=== PATIENT | male | born 1985 | race American Indian/Alaskan Native ===

== ENCOUNTER 2022-01-12 16:45 | Observation (INO) | payer BC, OTHER ==
[2022-01-12] MEDS ORDERED: SODIUM CHLORIDE 0.9% 1000 ML 1,000 ML IV ONE (17:03)
--- NOTE | 2022-01-12 17:28 | XRay Report ---
CHEST 1 VIEW 01/12/2022 5:05 PM INDICATION / CLINICAL INFORMATION: numbness. COMPARISON: None available. FINDINGS: SUPPORT DEVICES: None. HEART / MEDIASTINUM: No significant abnormality. LUNGS / PLEURA: No significant pulmonary or pleural abnormality. No pneumothorax. ADDITIONAL FINDINGS: No significant additional findings. IMPRESSION: 1. No acute findings. Signer Name: Norberto Luke DO Signed: 01/12/2022 5:24 PM Workstation Name: [id number]
[2022-01-12 17:46] LABS: Basophils % (Auto) 0.7 % (0.0-1.8); Eosinophils # (Auto) 0.1 K/mm3 (0.0-0.4); Eosinophils % (Auto) 0.9 % (0.0-4.3); Hematocrit 46.5 % (35.5-45.6); Hemoglobin 15.2 gm/dl (11.8-15.2); Lymphocytes # (Auto) 0.9 K/mm3 (1.2-5.4); Mean Corpuscular HGB Conc 33 % (32-34); Mean Corpuscular Volume 90 fl (84-94); Monocytes # (Auto) 0.3 K/mm3 (0.0-0.8); Monocytes % (Auto) 3.9 % (0.0-7.3); Platelet Count 213 K/mm3 (140-440); Red Blood Count 5.17 M/mm3 (3.65-5.03); Red Cell Distribution Width 13.3 % (13.2-15.2)
[2022-01-12 17:48] LABS: INR 0.81 (0.87-1.13)
[2022-01-12 17:49] LABS: Partial Thromboplastin Time 33.8 Sec. (24.2-36.6); Thrombin Time 17.4 Sec. (15.1-19.6)
--- NOTE | 2022-01-12 17:57 | Cat Scan Report ---
NONENHANCED CT SCAN OF THE HEAD: INDICATION / CLINICAL INFORMATION: 36 years Male; Stroke symptoms. TECHNIQUE: Routine CT head without contrast. All CT scans at this location are performed using CT dos e reduction for ALARA by means of automated exposure control. COMPARISON: None. FINDINGS: BRAIN / INTRACRANIAL CONTENTS: No intracerebral hemorrhage or stroke mimics No acute hemorrhage, mass effect, midline shift, hydrocephalus, or acute, large territorial infarct. No chronic infarct or focal atrophy. Normal brain volume and ventricular/sulcal size for age. No sign ificant white matter abnormality. CRANIOCERVICAL JUNCTION: No significant abnormality. ORBITS: No significant abnormality of visualized orbits. SINUSES / MASTOIDS: No significant abnormality of the visualized paranasal sinuses or mastoid air keesha ls. ADDITIONAL FINDINGS: None. IMPRESSION: No intracerebral hemorrhage or stroke mimics No acute focal parenchymal lesion Signer Name: Iwona Adams MD Signed: 01/12/2022 5:52 PM Workstation Name: [id number]
[2022-01-12] MEDS ORDERED: METOPROLOL TARTRATE 5 MG/5 ML INJ IV ONE (18:26)
[2022-01-12 18:31] LABS: Creatine Kinase MB 1.5 ng/mL (0.0-4.0)
[2022-01-12 18:32] LABS: Alanine Aminotransferase 11 units/L (7-56); Albumin 4.7 g/dL (3.9-5); BUN/Creatinine Ratio 11; Blood Urea Nitrogen 16 mg/dL (9-20); Calcium 9.8 mg/dL (8.4-10.2); Hemolysis Index 9
--- NOTE | 2022-01-12 18:53 | Emergency Department Report ---
ED General Adult HPI - General Chief complaint: Neuro Symptoms/Deficit Stated complaint: TINGLING ON LT SIDE OF FACE/LT ARM WEAKNESS Time Seen by Provider: 01/12/22 17:03 Source: patient Mode of arrival: Ambulatory Limitations: No Limitations - History of Present Illness Initial comments: states that he's had TIA's in the past and feels that he maybe having a TIA. Tingling and numbness to left side. pt had HTN but doesn;t take meds, he hasn;t seen a doctor for 2 years, no chest pain no sob, but he has some numbness on his face and upper extremity left side 2 hours prior to arrival, no weakness, or slurred speech -: Gradual, hour(s) (2) Location: face, upper extremity Worsens with: none Associated Symptoms: denies: chest pain, cough, diaphoresis, headaches, loss of appetite Treatments Prior to Arrival: none - Related Data Home Medications Medication Instructions Recorded Confirmed Last Taken No Known Home Medications [No 01/12/22 01/12/22 Unknown Reported Home Medications] Allergies Allergy/AdvReac Type Severity Reaction Status Date / Time No Known Allergies Allergy Verified 01/12/22 18:38 ED Review of Systems ROS: Stated complaint: TINGLING ON LT SIDE OF FACE/LT ARM WEAKNESS Other details as noted in HPI Constitutional: denies: chills, fever Eyes: denies: eye pain, eye discharge, vision change ENT: denies: ear pain, throat pain Respiratory: denies: cough, shortness of breath, wheezing Cardiovascular: denies: chest pain, palpitations Endocrine: no symptoms reported Gastrointestinal: denies: abdominal pain, nausea, diarrhea Genitourinary: denies: urgency, dysuria Musculoskeletal: denies: back pain, joint swelling, arthralgia Skin: denies: rash, lesions Neurological: denies: headache, weakness, paresthesias Psychiatric: denies: anxiety, depression Hematological/Lymphatic: denies: easy bleeding, easy bruising ED Past Medical Hx - Past Medical History Hx Hypertension: Yes Hx Asthma: Yes Additional medical history: TIA - Social History Smoking Status: Former Smoker - Medications Home Medications: Home Medications Medication Instructions Recorded Confirmed Last Taken Type No Known Home Medications [No 01/12/22 01/12/22 Unknown History Reported Home Medications] ED Physical Exam - General Limitations: No Limitations General appearance: alert, in no apparent distress - Head Head exam: Present: atraumatic, normocephalic - Eye Eye exam: Present: normal appearance - ENT ENT exam: Present: mucous membranes moist - Neck Neck exam: Present: normal inspection - Respiratory Respiratory exam: Present: normal lung sounds bilaterally. Absent: respiratory distress - Cardiovascular Cardiovascular Exam: Present: regular rate, normal rhythm. Absent: systolic murmur, diastolic murmur, rubs, gallop - GI/Abdominal GI/Abdominal exam: Present: soft, normal bowel sounds - Rectal Rectal exam: Present: deferred - Extremities Exam Extremities exam: Present: normal inspection - Back Exam Back exam: Present: normal inspection - Neurological Exam Neurological exam: Present: alert, oriented X3 - Psychiatric Psychiatric exam: Present: normal affect, normal mood - Skin Skin exam: Present: warm, dry, intact, normal color. Absent: rash ED Course Vital Signs 01/12/22 01/12/22 01/12/22 16:51 17:03 17:15 Temperature 98.7 F Pulse Rate 111 H 107 H Respiratory 18 Rate Blood Pressure 234/140 Blood Pressure 241/164 [Left] O2 Sat by Pulse 99 98 96 Oximetry 01/12/22 01/12/22 17:45 18:15 Temperature Pulse Rate 100 H 102 H Respiratory Rate Blood Pressure Blood Pressure 236/142 251/151 [Left] O2 Sat by Pulse 100 100 Oximetry - Reevaluation(s) Reevaluation #1: 01/12/22 18:51 work up negative , head cT negative lopressor didn;t cause much effect , will start on nicardipine drip for hypertensive emrgency ED Medical Decision Making - Lab Data Result diagrams: 01/12/22 17:14 01/12/22 17:14 Critical care attestation.: If time is entered above; I have spent that time in minutes in the direct care of this critically ill patient, excluding procedure time. ED Disposition Clinical Impression: Hypertensive emergency, Numbness Disposition: ADMITTED INPATIENT Is pt being admited?: Yes Does the pt Need Aspirin: No Condition: Stable Instructions: Hypertension (ED), Preventing Hypertension
[2022-01-12] MEDS ORDERED: niCARdipine DRIP 40 MG/200 ML BAG ONE (18:56)
[2022-01-12 19:06] LABS: Amphetamine Screen,Urine PRESUMPTIVE NEGATIVE; Benzodiazepines Screen,Urine PRESUMPTIVE NEGATIVE; Cannabinoid Screen,Urine PRESUMPTIVE NEGATIVE; Cocaine Screen,Urine PRESUMPTIVE NEGATIVE; Methadone Screen,Urine PRESUMPTIVE NEGATIVE; Opiate Screen,Urine PRESUMPTIVE NEGATIVE
[2022-01-12 19:31] LABS: Bilirubin,Urine NEG (Negative); Blood,Urine NEG (Negative); Color,Urine Straw (Yellow); Urobilinogen,Urine < 2.0 mg/dL (<2.0)
[2022-01-12] MEDS: niCARdipine 50 MG in SODIUM CHLORIDE 0.9% 250ML 230 ML IV SCH (19:44)
--- NOTE | 2022-01-12 19:46 | History and Physical Report ---
History of Present Illness Date of examination: 01/12/22 Date of admission: 01/12/2022 Chief complaint: January 12, 2022 History of present illness: 36-year-old -[place] male with morbid obesity and history of hypertension comes to the emergency room complaining of tingling to the left side of the face and left upper extremity. Patient had similar episodes in the past. Patient does not take his blood pressure medications for the last couple of years. Very noncompliant. In the emergency room his blood pressure was 260/160 and was started on nicardipine drip. No chest pain. No shortness of breath. No fever or chills. No syncope. No weakness. ED course--patient was started on nicardipine drip to control her blood pressure and was also started on antihypertensives in the form of valsartan, Coreg and nifedipine. Patient being admitted to ICU for control of blood pressure and because of the nicardipine drip. - Past Medical History --Hypertension: Yes --Asthma: Yes --Additional medical history: TIA - Social History Smoking Status: Former Smoker - Medications Home Medications: Home Medications Medication Instructions Recorded Confirmed Last Taken Type No Known Home Medications [No 01/12/22 01/12/22 Unknown History Reported Home Medications] Review of Systems ROS: Stated complaint: TINGLING ON LT SIDE OF FACE/LT ARM WEAKNESS Other details as noted in HPI Constitutional: denies: chills, fever Eyes: denies: eye pain, eye discharge, vision change ENT: denies: ear pain, throat pain Respiratory: denies: cough, shortness of breath, wheezing Cardiovascular: denies: chest pain, palpitations Endocrine: no symptoms reported Gastrointestinal: denies: abdominal pain, nausea, diarrhea Genitourinary: denies: urgency, dysuria Musculoskeletal: denies: back pain, joint swelling, arthralgia Skin: denies: rash, lesions Neurological: denies: headache, weakness, paresthesias Psychiatric: denies: anxiety, depression Hematological/Lymphatic: denies: easy bleeding, easy bruising Medications and Allergies Allergies Allergy/AdvReac Type Severity Reaction Status Date / Time No Known Allergies Allergy Verified 01/12/22 18:38 Home Medications Medication Instructions Recorded Confirmed Last Taken Type No Known Home Medications [No 01/12/22 01/12/22 Unknown History Reported Home Medications] Active Meds: Active Medications Nicardipine HCl 50 mg/ Sodium (Chloride) 250 mls @ 25 mls/hr IV TITR ELMER; Protocol Exam - Constitutional Vitals: Temp Pulse Resp BP Pulse Ox 98.7 F 86 19 251/151 100 01/12/22 16:51 01/12/22 18:54 01/12/22 18:54 01/12/22 18:15 01/12/22 18:54 General appearance: Present: no acute distress, well-nourished - EENT Eyes: Present: PERRL ENT: hearing intact, clear oral mucosa - Neck Neck: Present: supple, normal ROM - Respiratory Respiratory effort: normal Respiratory: bilateral: CTA - Cardiovascular Heart rate: 78 Rhythm: regular Heart Sounds: Present: S1 & S2. Absent: rub, click - Extremities Extremities: pulses symmetrical, No edema Peripheral Pulses: within normal limits - Abdominal General gastrointestinal: Present: soft, non-tender, non-distended, normal bowel sounds Male genitourinary: Present: normal - Integumentary Integumentary: Present: clear, warm, dry - Musculoskeletal Musculoskeletal: gait normal, strength equal bilaterally - Psychiatric Psychiatric: appropriate mood/affect, intact judgment & insight - Neurologic Neurologic: CNII-XII intact, moves all extremities - Allied Health Allied health notes reviewed: nursing, case management HEART Score - HEART Score History: Slightly suspicious Age: < 45 Risk factors: 1-2 risk factors Troponin: Troponin T < 0.010 ng/mL (0.00-0.029) 01/12/22 17:14 - Critical Actions Critical Actions: 0-3 pts:0.9-1.7%risk of adverse cardiac event.Candidate for discharge Results - Labs CBC & Chem 7: 01/13/22 05:55 01/12/22 17:14 Labs: Laboratory Last Values WBC 7.2 K/mm3 (4.5-11.0) 01/12/22 17:14 RBC 5.17 M/mm3 (3.65-5.03) H 01/12/22 17:14 Hgb 15.2 gm/dl (11.8-15.2) 01/12/22 17:14 Hct 46.5 % (35.5-45.6) H 01/12/22 17:14 MCV 90 fl (84-94) 01/12/22 17:14 MCH 29 pg (28-32) 01/12/22 17:14 MCHC 33 % (32-34) 01/12/22 17:14 RDW 13.3 % (13.2-15.2) 01/12/22 17:14 Plt Count 213 K/mm3 (140-440) 01/12/22 17:14 Lymph % (Auto) 12.0 % (13.4-35.0) L 01/12/22 17:14 [place] % (Auto) 3.9 % (0.0-7.3) 01/12/22 17:14 Eos % (Auto) 0.9 % (0.0-4.3) 01/12/22 17:14 Baso % (Auto) 0.7 % (0.0-1.8) 01/12/22 17:14 Lymph # (Auto) 0.9 K/mm3 (1.2-5.4) L 01/12/22 17:14 [place] # (Auto) 0.3 K/mm3 (0.0-0.8) 01/12/22 17:14 Eos # (Auto) 0.1 K/mm3 (0.0-0.4) 01/12/22 17:14 Baso # (Auto) 0.0 K/mm3 (0.0-0.1) 01/12/22 17:14 Seg Neutrophils % 82.5 % (40.0-70.0) H 01/12/22 17:14 Seg Neutrophils # 6.0 K/mm3 (1.8-7.7) 01/12/22 17:14 PT 12.0 Sec. (12.2-14.9) L 01/12/22 17:14 INR 0.81 (0.87-1.13) L 01/12/22 17:14 APTT 33.8 Sec. (24.2-36.6) 01/12/22 17:14 Thrombin Time 17.4 Sec. (15.1-19.6) 01/12/22 17:14 Sodium 137 mmol/L (137-145) 01/12/22 17:14 Potassium 3.8 mmol/L (3.6-5.0) 01/12/22 17:14 Chloride 99.0 mmol/L (98-107) 01/12/22 17:14 Carbon Dioxide 20 mmol/L (22-30) L 01/12/22 17:14 Anion Gap 22 mmol/L 01/12/22 17:14 BUN 16 mg/dL (9-20) 01/12/22 17:14 Creatinine 1.4 mg/dL (0.8-1.3) H 01/12/22 17:14 Estimated GFR > 60 ml/min 01/12/22 17:14 BUN/Creatinine Ratio 11 % 01/12/22 17:14 Glucose 104 mg/dL (75-100) H 01/12/22 17:14 POC Glucose 105 mg/dL (70-105) 01/12/22 17:25 Calcium 9.8 mg/dL (8.4-10.2) 01/12/22 17:14 Total Bilirubin 0.30 mg/dL (0.1-1.2) 01/12/22 17:14 AST 16 units/L (5-40) 01/12/22 17:14 ALT 11 units/L (7-56) 01/12/22 17:14 Alkaline Phosphatase 106 units/L (35-129) 01/12/22 17:14 Total Creatine Kinase 181 units/L (55-170) H 01/12/22 17:14 CK-MB (CK-2) 1.5 ng/mL (0.0-4.0) 01/12/22 17:14 CK-MB (CK-2) Rel Index 0.8 (0-4) 01/12/22 17:14 Troponin T < 0.010 ng/mL (0.00-0.029) 01/12/22 17:14 Total Protein 8.5 g/dL (6.3-8.2) H 01/12/22 17:14 Albumin 4.7 g/dL (3.9-5) 01/12/22 17:14 Albumin/Globulin Ratio 1.2 % 01/12/22 17:14 Urine Color Straw (Yellow) 01/12/22 18:35 Urine Turbidity Clear (Clear) 01/12/22 18:35 Urine pH 7.0 (5.0-7.0) 01/12/22 18:35 Ur Specific Drums 1.013 (1.003-1.030) 01/12/22 18:35 Urine Protein 30 mg/dl mg/dL (Negative) 01/12/22 18:35 Urine Glucose (UA) Neg mg/dL (Negative) 01/12/22 18:35 Urine Ketones Neg mg/dL (Negative) 01/12/22 18:35 Urine Blood Neg (Negative) 01/12/22 18:35 Urine Nitrite Neg (Negative) 01/12/22 18:35 Urine Bilirubin Neg (Negative) 01/12/22 18:35 Urine Urobilinogen < 2.0 mg/dL (<2.0) 01/12/22 18:35 Ur Leukocyte Esterase Neg (Negative) 01/12/22 18:35 Urine WBC (Auto) 1.0 /HPF (0.0-6.0) 01/12/22 18:35 Urine RBC (Auto) 2.0 /HPF (0.0-6.0) 01/12/22 18:35 U Epithel Cells (Auto) < 1.0 /HPF (0-13.0) 01/12/22 18:35 Urine Opiates Screen Presumptive negative 01/12/22 18:35 Urine Methadone Screen Presumptive negative 01/12/22 18:35 Ur Barbiturates Screen Presumptive negative 01/12/22 18:35 Ur Phencyclidine Scrn Presumptive negative 01/12/22 18:35 Ur Amphetamines Screen Presumptive negative 01/12/22 18:35 U Benzodiazepines Scrn Presumptive negative 01/12/22 18:35 Urine Cocaine Screen Presumptive negative 01/12/22 18:35 U Marijuana (THC) Screen Presumptive negative 01/12/22 18:35 Drugs of Abuse Note Disclamer 01/12/22 18:35 Short CBC 01/12/22 01/13/22 Range/Units 17:14 05:55 WBC 7.2 8.2 (4.5-11.0) K/mm3 Hgb 15.2 15.0 (11.8-15.2) gm/dl Hct 46.5 H 43.4 (35.5-45.6) % Plt Count 213 202 (140-440) K/mm3 BMP 01/12/22 17:14 Sodium 137 Potassium 3.8 Chloride 99.0 Carbon Dioxide 20 L BUN 16 Creatinine 1.4 H Glucose 104 H Calcium 9.8 Cardiac Enzymes 01/12/22 Range/Units 17:14 Total Creatine Kinase 181 H (55-170) units/L CK-MB (CK-2) 1.5 (0.0-4.0) ng/mL Troponin T < 0.010 (0.00-0.029) ng/mL Liver Function 01/12/22 Range/Units 17:14 Total Bilirubin 0.30 (0.1-1.2) mg/dL AST 16 (5-40) units/L ALT 11 (7-56) units/L Alkaline Phosphatase 106 (35-129) units/L Albumin 4.7 (3.9-5) g/dL Urine 01/12/22 Range/Units 18:35 Urine Color Straw (Yellow) Urine pH 7.0 (5.0-7.0) Ur Specific Drums 1.013 (1.003-1.030) Urine Protein 30 mg/dl (Negative) mg/dL Urine Glucose (UA) Neg (Negative) mg/dL - Imaging and Cardiology EKG: report reviewed (Sinus rhythm, LVH by voltage criteria) Chest x-ray: report reviewed Imaging and Cardiology: Chest x-ray No acute findings head CT No intracerebral hemorrhage Or stroke mimics Assessment and Plan Assessment and plan: Critical care statement. The high probability OF a clinically significant sudden or life-threatening deterioration of the cardiorespiratory system and endocrine system required my full and direct attention, intervention and postoperative management. The [facility] critical care time was 40 minutes. The time is in addition to time spent performing reported procedures but includes the followin: Data review and interpretation 2: Patient assessment and monitoring of vital signs 3: Documentation 4:: Medication orders and management Advance Directives: Yes (Full code) VTE prophylaxis?: Chemical Plan of care discussed with patient/family: Yes - Patient Problems (1) Hypertensive encephalopathy Current Visit: Yes Status: Acute Plan to address problem: Left-sided facial numbness and left-sided upper extremity numbness can be explained by hypertensive encephalopathy We will control her blood pressure with nicardipine and oral antihypertensives in the form of valsartan, Coreg and nifedipine XL. Admit to ICU. MRI of the brain. [employer] consult and neurology consult requested (2) Hypertensive emergency Current Visit: Yes Status: Acute Plan to address problem: Patient started on nicardipine drip and oral antihypertensives in the form of valsartan, Coreg and nifedipine. Patient counseled about compliance. Admit to ICU because of the nicardipine drip. Once stable patient can be transferred to telemetry (3) KALPESH (acute kidney injury) Current Visit: Yes Status: Acute Plan to address problem: Vasomotor nephropathy D5W for now (4) Morbid obesity with BMI of 40.0-44.9, adult Current Visit: Yes Status: Chronic Plan to address problem: Patient to follow-up with bariatric surgery as outpatient (5) DVT prophylaxis Current Visit: Yes Status: Acute Plan to address problem: On heparin and GI prophylaxis (6) Advance care planning Current Visit: Yes Status: Acute Plan to address problem: Disease education conducted, care plan discussed, diagnosis discussed, prognosis discussed. Patient is full code. Patient acknowledges understanding and agreement with care plan. +30 minutes.
[2022-01-12] MEDS ORDERED: ONDANSETRON 4 MG/2 ML INJ IV PRN (19:48)
[2022-01-12] MEDS ORDERED: ACETAMINOPHEN 325 MG TAB PO PRN (19:48)
[2022-01-12] MEDS ORDERED: oxyCODONE /ACETAMINOPHEN 5-325MG TAB PO PRN (19:48)
[2022-01-12] MEDS ORDERED: MORPHINE 2 MG/1 ML INJ IV PRN (19:48)
[2022-01-12] MEDS: VALSARTAN 160MG TAB PO SCH (20:30)
[2022-01-12] MEDS: NIFEdipine XL 90 MG TAB PO SCH (20:54)
[2022-01-12] MEDS: carvediloL 12.5 MG TAB PO SCH (22:05)
[2022-01-12] MEDS: HEPARIN 5,000 UNIT/1 ML VIAL SUB-Q SCH (23:32)
[2022-01-13] MEDS: niCARdipine 50 MG in SODIUM CHLORIDE 0.9% 250ML 230 ML IV SCH (01:01)
[2022-01-13 06:28] LABS: Basophils # (Auto) 0.1 K/mm3 (0.0-0.1); Basophils % (Auto) 0.9 % (0.0-1.8); Eosinophils # (Auto) 0.1 K/mm3 (0.0-0.4); Eosinophils % (Auto) 1.6 % (0.0-4.3); Hematocrit 43.4 % (35.5-45.6); Lymphocytes # (Auto) 1.7 K/mm3 (1.2-5.4); Lymphocytes % (Auto) 20.2 % (13.4-35.0); Mean Corpuscular HGB Conc 35 % (32-34); Mean Corpuscular Volume 89 fl (84-94); Monocytes # (Auto) 0.5 K/mm3 (0.0-0.8); Monocytes % (Auto) 6.4 % (0.0-7.3); Platelet Count 202 K/mm3 (140-440); Red Blood Count 4.89 M/mm3 (3.65-5.03); Red Cell Distribution Width 13.8 % (13.2-15.2)
[2022-01-13 06:44] LABS: Alanine Aminotransferase 10 units/L (7-56); Albumin 4.2 g/dL (3.9-5); BUN/Creatinine Ratio 12; Blood Urea Nitrogen 13 mg/dL (9-20); Calcium 9.2 mg/dL (8.4-10.2); Hemolysis Index 40
[2022-01-13] MEDS ORDERED: DEXTROSE 5% IN WATER 1,000 ML IV SCH (07:00)
[2022-01-13] MEDS: HEPARIN 5,000 UNIT/1 ML VIAL SUB-Q SCH ×2 (09:15→21:14)
[2022-01-13] MEDS: carvediloL 12.5 MG TAB PO SCH ×2 (09:15→21:14)
[2022-01-13] MEDS: VALSARTAN 160MG TAB PO SCH ×2 (09:15→21:14)
[2022-01-13] MEDS: FAMOTIDINE 20 MG TAB PO SCH (09:34)
--- NOTE | 2022-01-13 09:54 | Progress Note ---
<RADHA CUELLAR - Last Filed: 01/13/22 15:58> Assessment and Plan Assessment and plan: This is a 36-year-old AA male with known past medical history of HTN who has been noncompliant with his antihypertensive meds for over 2 years, presented with hypertensive emergency and tingling sensation to the left side of the face and left upper extremity. Hospital Course to Date: 01/13: BP more control this am, off cardene gtt. Continue current antihypertensive regimen for now. Per patient the numbing and tingling sensation resolved just a slight headache this am, will proceed with MRI brain and Neuro consult pending. Thorough education provided on the importance to follow up with a PCP, medications compliance, and sedentary lifestyle changes at discharge. Patient verbalized understanding of the info provided and all questions and concerns were voiced at this time. Patient is stable for transfer to telemetry. Assessment and Plan #Hypertensive Encephalopathy - Presented with Left-sided facial numbness and left-sided upper extremity numbnes most likely related to High BP - BP more control this am, off cardene gtt - Numbing and tingling sensation resolved however still with LUCERO - CT head/brain is unremarkable - MRI brain and Neuro consult pending - PRN analgesia for pain management #Hypertensive Emergency - BP more control this am, off cardene gtt - Continue antihypertensives valsartan, Coreg and nifedipine - Continue blood pressure monitor per protocol - PRN Hydralazine for SBP greater than 160 - Education provided on compliance and F/u with a PCP at discharge - Patient is stable for transfer to Telemetry #Acute Kidney Injury(KALPESH) most likely Vasomotor Nephropathy - Renal function improved this am - Continue tight BP control - Strict intake and output - Avoid nephrotoxic medications; Renally dose medications - Trend BMP #Morbid obesity with BMI of 40.0-44.9, adult - Education provided on sedentary lifestyle changes - Patient to follow-up with bariatric surgery as outpatient #GI/DVT Prophylaxis - PPI- Pepcid - Continue AC-Hep SubQ - SCDs to bilateral lower extremities while in bed The high probability of a clinically significant, sudden or life threatening deterioration of the [multiple] system(s) required my full and direct attention, intervention and personal management. The aggregate critical care time was [60] minutes. This time is in addition to time spent performing reported procedures but includes the following: [x] Data Review and interpretation [x] Patient assessment and monitoring of vital signs [x] Documentation [x] Medication orders and management Disposition Plan: ICU Total Time Spent with Patient (Minutes): 60 History Interval history: Patient seen and examined at the bedside. Fully AAO, on RA, denied any pain nor any discomfort at this time. Patient is off the cardene gtt this am, he also voiced that the numbing and tingling sensation have also resolved just a slight headache this am. [facility] overnight Hospitalist Physical - Constitutional Vitals: Temp Pulse Resp BP Pulse Ox 97.8 F 68 13 150/93 95 01/13/22 07:21 01/13/22 09:15 01/13/22 05:51 01/13/22 09:15 01/13/22 07:26 General appearance: Present: no acute distress, well-nourished, obese - EENT Eyes: Present: PERRL, EOM intact ENT: hearing intact, clear oral mucosa - Neck Neck: Present: normal ROM - Respiratory Respiratory effort: normal Respiratory: bilateral: CTA - Cardiovascular Rhythm: regular Heart Sounds: Present: S1 & S2 - Extremities Extremities: no ischemia, pulses intact, pulses symmetrical Extremity abnormal: edema - Peripheral Assessment Generalized Edema Type: Non-pitting Edema Degree: 2+ Capillary Refill: < 3 seconds Skin Temperature: Warm Peripheral Pulses: within normal limits - Abdominal General gastrointestinal: soft, non-distended, normal bowel sounds - Integumentary Integumentary: Present: clear, warm, dry - Psychiatric Psychiatric: appropriate mood/affect, cooperative - Neurologic Neurologic: CNII-XII intact, moves all extremities - Allied Health Allied health notes reviewed: nursing HEART Score - HEART Score Age: < 45 Risk factors: 1-2 risk factors Troponin: Troponin T < 0.010 ng/mL (0.00-0.029) 01/12/22 17:14 - Critical Actions Critical Actions: 0-3 pts:0.9-1.7%risk of adverse cardiac event.Candidate for discharge Results - Labs CBC & Chem 7: 01/13/22 05:55 01/13/22 05:55 Labs: Laboratory Last Values WBC 8.2 K/mm3 (4.5-11.0) 01/13/22 05:55 RBC 4.89 M/mm3 (3.65-5.03) 01/13/22 05:55 Hgb 15.0 gm/dl (11.8-15.2) 01/13/22 05:55 Hct 43.4 % (35.5-45.6) 01/13/22 05:55 MCV 89 fl (84-94) 01/13/22 05:55 MCH 31 pg (28-32) 01/13/22 05:55 MCHC 35 % (32-34) H 01/13/22 05:55 RDW 13.8 % (13.2-15.2) 01/13/22 05:55 Plt Count 202 K/mm3 (140-440) 01/13/22 05:55 Lymph % (Auto) 20.2 % (13.4-35.0) 01/13/22 05:55 [place] % (Auto) 6.4 % (0.0-7.3) 01/13/22 05:55 Eos % (Auto) 1.6 % (0.0-4.3) 01/13/22 05:55 Baso % (Auto) 0.9 % (0.0-1.8) 01/13/22 05:55 Lymph # (Auto) 1.7 K/mm3 (1.2-5.4) 01/13/22 05:55 [place] # (Auto) 0.5 K/mm3 (0.0-0.8) 01/13/22 05:55 Eos # (Auto) 0.1 K/mm3 (0.0-0.4) 01/13/22 05:55 Baso # (Auto) 0.1 K/mm3 (0.0-0.1) 01/13/22 05:55 Seg Neutrophils % 70.9 % (40.0-70.0) H 01/13/22 05:55 Seg Neutrophils # 5.8 K/mm3 (1.8-7.7) 01/13/22 05:55 PT 12.0 Sec. (12.2-14.9) L 01/12/22 17:14 INR 0.81 (0.87-1.13) L 01/12/22 17:14 APTT 33.8 Sec. (24.2-36.6) 01/12/22 17:14 Thrombin Time 17.4 Sec. (15.1-19.6) 01/12/22 17:14 Sodium 137 mmol/L (137-145) 01/13/22 05:55 Potassium 3.8 mmol/L (3.6-5.0) 01/13/22 05:55 Chloride 102.6 mmol/L (98-107) 01/13/22 05:55 Carbon Dioxide 21 mmol/L (22-30) L 01/13/22 05:55 Anion Gap 17 mmol/L 01/13/22 05:55 BUN 13 mg/dL (9-20) 01/13/22 05:55 Creatinine 1.1 mg/dL (0.8-1.3) 01/13/22 05:55 Estimated GFR > 60 ml/min 01/13/22 05:55 BUN/Creatinine Ratio 12 % 01/13/22 05:55 Glucose 106 mg/dL (75-100) H 01/13/22 05:55 POC Glucose 105 mg/dL (70-105) 01/12/22 17:25 Calcium 9.2 mg/dL (8.4-10.2) 01/13/22 05:55 Total Bilirubin 0.40 mg/dL (0.1-1.2) 01/13/22 05:55 AST 15 units/L (5-40) 01/13/22 05:55 ALT 10 units/L (7-56) 01/13/22 05:55 Alkaline Phosphatase 92 units/L (35-129) 01/13/22 05:55 Total Creatine Kinase 181 units/L (55-170) H 01/12/22 17:14 CK-MB (CK-2) 1.5 ng/mL (0.0-4.0) 01/12/22 17:14 CK-MB (CK-2) Rel Index 0.8 (0-4) 01/12/22 17:14 Troponin T < 0.010 ng/mL (0.00-0.029) 01/12/22 17:14 Total Protein 7.3 g/dL (6.3-8.2) 01/13/22 05:55 Albumin 4.2 g/dL (3.9-5) 01/13/22 05:55 Albumin/Globulin Ratio 1.4 % 01/13/22 05:55 Urine Color Straw (Yellow) 01/12/22 18:35 Urine Turbidity Clear (Clear) 01/12/22 18:35 Urine pH 7.0 (5.0-7.0) 01/12/22 18:35 Ur Specific [place] 1.013 (1.003-1.030) 01/12/22 18:35 Urine Protein 30 mg/dl mg/dL (Negative) 01/12/22 18:35 Urine Glucose (UA) Neg mg/dL (Negative) 01/12/22 18:35 Urine Ketones Neg mg/dL (Negative) 01/12/22 18:35 Urine Blood Neg (Negative) 01/12/22 18:35 Urine Nitrite Neg (Negative) 01/12/22 18:35 Urine Bilirubin Neg (Negative) 01/12/22 18:35 Urine Urobilinogen < 2.0 mg/dL (<2.0) 01/12/22 18:35 Ur Leukocyte Esterase Neg (Negative) 01/12/22 18:35 Urine WBC (Auto) 1.0 /HPF (0.0-6.0) 01/12/22 18:35 Urine RBC (Auto) 2.0 /HPF (0.0-6.0) 01/12/22 18:35 U Epithel Cells (Auto) < 1.0 /HPF (0-13.0) 01/12/22 18:35 Urine Opiates Screen Presumptive negative 01/12/22 18:35 Urine Methadone Screen Presumptive negative 01/12/22 18:35 Ur Barbiturates Screen Presumptive negative 01/12/22 18:35 Ur Phencyclidine Scrn Presumptive negative 01/12/22 18:35 Ur Amphetamines Screen Presumptive negative 01/12/22 18:35 U Benzodiazepines Scrn Presumptive negative 01/12/22 18:35 Urine Cocaine Screen Presumptive negative 01/12/22 18:35 U Marijuana (THC) Screen Presumptive negative 01/12/22 18:35 Drugs of Abuse Note Disclamer 01/12/22 18:35 Perez/IV: Voiding Method Urinal Active Medications - Current Medications Current Medications: Generic Name Dose Route Start Last Admin Trade Name Freq PRN Reason Stop Dose Admin Acetaminophen 650 mg 01/12/22 19:48 Acetaminophen 325 Mg Tab PO Q4H PRN Pain MILD(1-3)/Fever >100.5/LUCERO Carvedilol 12.5 mg 01/12/22 22:00 01/13/22 09:15 Carvedilol 12.5 Mg Tab PO 12.5 mg BID ELMER Administration Famotidine 20 mg 01/13/22 10:00 01/13/22 09:34 Famotidine 20 Mg Tab PO 20 mg QDAY ELMER Administration Heparin Sodium (Porcine) 5,000 unit 01/12/22 22:00 01/13/22 09:15 Heparin 5,000 Unit/1 Ml Vial SUB-Q 5,000 unit Q12HR ELMER Administration Nicardipine HCl 50 mg/ Sodium 250 mls @ 25 mls/hr 01/12/22 19:00 01/13/22 04 :30 Chloride IV 0 mg/hr TITR ELMER 0 mls/hr Titration Protocol 5 MG/HR Morphine Sulfate 2 mg 01/12/22 19:48 Morphine 2 Mg/1 Ml Inj IV Q4H PRN Pain, Moderate (4-6) Nifedipine 90 mg 01/12/22 21:00 01/12/22 20:54 Nifedipine Xl 90 Mg Tab PO 90 mg Q24H ELMER Administration Ondansetron HCl 4 mg 01/12/22 19:48 Ondansetron 4 Mg/2 Ml Inj IV Q8H PRN Nausea And Vomiting Oxycodone/Acetaminophen 1 tab 01/12/22 19:48 Oxycodone /Acetaminophen 5-325mg Tab PO Q6H PRN Pain, Moderate (4-6) Sodium Chloride 10 ml 01/12/22 22:00 01/13/22 09:35 Sodium Chloride 0.9% 10 Ml Flush Syringe IV 10 ml BID ELMER Administration Sodium Chloride 10 ml 01/12/22 19:48 Sodium Chloride 0.9% 10 Ml Flush Syringe IV PRN PRN LINE FLUSH Valsartan 160 mg 01/12/22 20:20 01/13/22 09:15 Valsartan 160mg Tab PO 160 mg Q12H ELMER Administration <NEELA KELLEY - Last Filed: 01/14/22 07:15> Assessment and Plan Assessment and plan: I saw and evaluated the patient. I agree with the findings and the plan of care as documented in the Nurse Practitioner's~note, with the following corrections and additions. Can discharge in am Hospitalist Physical - Constitutional Vitals: Temp Pulse Resp BP Pulse Ox 97.8 F 65 18 150/84 100 01/14/22 03:55 01/14/22 03:55 01/14/22 03:55 01/14/22 03:55 01/14/22 03:55 HEART Score - HEART Score Troponin: Troponin T < 0.010 ng/mL (0.00-0.029) 01/12/22 17:14 Results - Labs CBC & Chem 7: 01/14/22 04:47 01/14/22 04:47 Labs: Laboratory Last Values WBC 7.0 K/mm3 (4.5-11.0) 01/14/22 04:47 RBC 4.55 M/mm3 (3.65-5.03) 01/14/22 04:47 Hgb 14.1 gm/dl (11.8-15.2) 01/14/22 04:47 Hct 39.9 % (35.5-45.6) 01/14/22 04:47 MCV 88 fl (84-94) 01/14/22 04:47 MCH 31 pg (28-32) 01/14/22 04:47 MCHC 35 % (32-34) H 01/14/22 04:47 RDW 13.4 % (13.2-15.2) 01/14/22 04:47 Plt Count 189 K/mm3 (140-440) 01/14/22 04:47 Lymph % (Auto) 20.2 % (13.4-35.0) 01/13/22 05:55 [place] % (Auto) 6.4 % (0.0-7.3) 01/13/22 05:55 Eos % (Auto) 1.6 % (0.0-4.3) 01/13/22 05:55 Baso % (Auto) 0.9 % (0.0-1.8) 01/13/22 05:55 Lymph # (Auto) 1.7 K/mm3 (1.2-5.4) 01/13/22 05:55 [place] # (Auto) 0.5 K/mm3 (0.0-0.8) 01/13/22 05:55 Eos # (Auto) 0.1 K/mm3 (0.0-0.4) 01/13/22 05:55 Baso # (Auto) 0.1 K/mm3 (0.0-0.1) 01/13/22 05:55 Seg Neutrophils % 70.9 % (40.0-70.0) H 01/13/22 05:55 Seg Neutrophils # 5.8 K/mm3 (1.8-7.7) 01/13/22 05:55 PT 12.0 Sec. (12.2-14.9) L 01/12/22 17:14 INR 0.81 (0.87-1.13) L 01/12/22 17:14 APTT 33.8 Sec. (24.2-36.6) 01/12/22 17:14 Thrombin Time 17.4 Sec. (15.1-19.6) 01/12/22 17:14 Sodium 135 mmol/L (137-145) L 01/14/22 04:47 Potassium 3.5 mmol/L (3.6-5.0) L 01/14/22 04:47 Chloride 100.8 mmol/L (98-107) 01/14/22 04:47 Carbon Dioxide 24 mmol/L (22-30) 01/14/22 04:47 Anion Gap 14 mmol/L 01/14/22 04:47 BUN 17 mg/dL (9-20) 01/14/22 04:47 Creatinine 1.2 mg/dL (0.8-1.3) 01/14/22 04:47 Estimated GFR > 60 ml/min 01/14/22 04:47 BUN/Creatinine Ratio 14 % 01/14/22 04:47 Glucose 98 mg/dL (75-100) 01/14/22 04:47 POC Glucose 105 mg/dL (70-105) 01/12/22 17:25 Calcium 8.8 mg/dL (8.4-10.2) 01/14/22 04:47 Total Bilirubin 0.40 mg/dL (0.1-1.2) 01/13/22 05:55 AST 15 units/L (5-40) 01/13/22 05:55 ALT 10 units/L (7-56) 01/13/22 05:55 Alkaline Phosphatase 92 units/L (35-129) 01/13/22 05:55 Total Creatine Kinase 181 units/L (55-170) H 01/12/22 17:14 CK-MB (CK-2) 1.5 ng/mL (0.0-4.0) 01/12/22 17:14 CK-MB (CK-2) Rel Index 0.8 (0-4) 01/12/22 17:14 Troponin T < 0.010 ng/mL (0.00-0.029) 01/12/22 17:14 Total Protein 7.3 g/dL (6.3-8.2) 01/13/22 05:55 Albumin 4.2 g/dL (3.9-5) 01/13/22 05:55 Albumin/Globulin Ratio 1.4 % 01/13/22 05:55 Urine Color Straw (Yellow) 01/12/22 18:35 Urine Turbidity Clear (Clear) 01/12/22 18:35 Urine pH 7.0 (5.0-7.0) 01/12/22 18:35 Ur Specific [place] 1.013 (1.003-1.030) 01/12/22 18:35 Urine Protein 30 mg/dl mg/dL (Negative) 01/12/22 18:35 Urine Glucose (UA) Neg mg/dL (Negative) 01/12/22 18:35 Urine Ketones Neg mg/dL (Negative) 01/12/22 18:35 Urine Blood Neg (Negative) 01/12/22 18:35 Urine Nitrite Neg (Negative) 01/12/22 18:35 Urine Bilirubin Neg (Negative) 01/12/22 18:35 Urine Urobilinogen < 2.0 mg/dL (<2.0) 01/12/22 18:35 Ur Leukocyte Esterase Neg (Negative) 01/12/22 18:35 Urine WBC (Auto) 1.0 /HPF (0.0-6.0) 01/12/22 18:35 Urine RBC (Auto) 2.0 /HPF (0.0-6.0) 01/12/22 18:35 U Epithel Cells (Auto) < 1.0 /HPF (0-13.0) 01/12/22 18:35 Urine Opiates Screen Presumptive negative 01/12/22 18:35 Urine Methadone Screen Presumptive negative 01/12/22 18:35 Ur Barbiturates Screen Presumptive negative 01/12/22 18:35 Ur Phencyclidine Scrn Presumptive negative 01/12/22 18:35 Ur Amphetamines Screen Presumptive negative 01/12/22 18:35 U Benzodiazepines Scrn Presumptive negative 01/12/22 18:35 Urine Cocaine Screen Presumptive negative 01/12/22 18:35 U Marijuana (THC) Screen Presumptive negative 01/12/22 18:35 Drugs of Abuse Note Disclamer 01/12/22 18:35 Perez/IV: Voiding Method Toilet Active Medications - Current Medications Current Medications: Generic Name Dose Route Start Last Admin Trade Name Freq PRN Reason Stop Dose Admin Acetaminophen 650 mg 01/12/22 19:48 Acetaminophen 325 Mg Tab PO Q4H PRN Pain MILD(1-3)/Fever >100.5/LUCERO Carvedilol 12.5 mg 01/12/22 22:00 01/13/22 21:14 Carvedilol 12.5 Mg Tab PO 12.5 mg BID ELMER Administration Famotidine 20 mg 01/13/22 10:00 01/13/22 09:34 Famotidine 20 Mg Tab PO 20 mg QDAY ELMER Administration Heparin Sodium (Porcine) 5,000 unit 01/12/22 22:00 01/13/22 21:14 Heparin 5,000 Unit/1 Ml Vial SUB-Q 5,000 unit Q12HR ELMER Administration Hydrochlorothiazide 25 mg 01/14/22 10:00 Hydrochlorothiazide 25 Mg Tab PO QDAY ELMER Nifedipine 90 mg 01/12/22 21:00 01/13/22 21:14 Nifedipine Xl 90 Mg Tab PO 90 mg Q24H ELMER Administration Ondansetron HCl 4 mg 01/12/22 19:48 Ondansetron 4 Mg/2 Ml Inj IV Q8H PRN Nausea And Vomiting Oxycodone/Acetaminophen 1 tab 01/12/22 19:48 Oxycodone /Acetaminophen 5-325mg Tab PO Q6H PRN Pain, Moderate (4-6) Sodium Chloride 10 ml 01/12/22 22:00 01/13/22 21:15 Sodium Chloride 0.9% 10 Ml Flush Syringe IV 10 ml BID ELMER Administration Sodium Chloride 10 ml 01/12/22 19:48 Sodium Chloride 0.9% 10 Ml Flush Syringe IV PRN PRN LINE FLUSH Valsartan 160 mg 01/12/22 20:20 01/13/22 21:14 Valsartan 160mg Tab PO 160 mg Q12H ELMER Administration
[2022-01-13] MEDS ORDERED: hydrALAZINE 20 MG/1 ML INJ IV PRN (11:06)
--- NOTE | 2022-01-13 12:11 | Consultation ---
History of Present Illness - Reason for Consult Consult date: 01/13/22 Hypertensive urgency Requesting physician: VARSHA ALFORD - History of Present Illness 36 y/o male admitted with Hypertensive Urgency. STarted on Cardene drip and now weaned off. Complained of headache and some visual disturbances but now all of these have resolved. Patient has HTN at baseline. Past History Past Medical History: hypertension Medications and Allergies Allergies Allergy/AdvReac Type Severity Reaction Status Date / Time No Known Allergies Allergy Verified 01/12/22 18:38 Home Medications Medication Instructions Recorded Confirmed Last Taken Type No Known Home Medications [No 01/12/22 01/12/22 Unknown History Reported Home Medications] Active Meds: Active Medications Acetaminophen (Acetaminophen 325 Mg Tab) 650 mg PO Q4H PRN PRN Reason: Pain MILD(1-3)/Fever >100.5/LUCERO Carvedilol (Carvedilol 12.5 Mg Tab) 12.5 mg PO BID [facility] Last Admin: 01/13/22 09:15 Dose: 12.5 mg Famotidine (Famotidine 20 Mg Tab) 20 mg PO QDAY [facility] Last Admin: 01/13/22 09:34 Dose: 20 mg Heparin Sodium (Porcine) (Heparin 5,000 Unit/1 Ml Vial) 5,000 unit SUB-Q Q12HR [facility] Last Admin: 01/13/22 09:15 Dose: 5,000 unit Hydralazine HCl (Hydralazine 20 Mg/1 Ml Inj) 10 mg IV Q4HR PRN PRN Reason: Hypertension Morphine Sulfate (Morphine 2 Mg/1 Ml Inj) 2 mg IV Q4H PRN PRN Reason: Pain, Moderate (4-6) Nifedipine (Nifedipine Xl 90 Mg Tab) 90 mg PO Q24H [facility] Last Admin: 01/12/22 20:54 Dose: 90 mg Ondansetron HCl (Ondansetron 4 Mg/2 Ml Inj) 4 mg IV Q8H PRN PRN Reason: Nausea And Vomiting Oxycodone/Acetaminophen (Oxycodone /Acetaminophen 5-325mg Tab) 1 tab PO Q6H PRN PRN Reason: Pain, Moderate (4-6) Sodium Chloride (Sodium Chloride 0.9% 10 Ml Flush Syringe) 10 ml IV BID [facility] Last Admin: 01/13/22 09:35 Dose: 10 ml Sodium Chloride (Sodium Chloride 0.9% 10 Ml Flush Syringe) 10 ml IV PRN PRN PRN Reason: LINE FLUSH Valsartan (Valsartan 160mg Tab) 160 mg PO Q12H ELMER Last Admin: 01/13/22 09:15 Dose: 160 mg Review of Systems All systems: negative Exam - Constitutional Vitals: Temp Pulse Resp BP Pulse Ox 97.8 F 68 13 150/93 95 01/13/22 11:21 01/13/22 09:15 01/13/22 05:51 01/13/22 09:15 01/13/22 07:26 General appearance: Present: no acute distress, well-nourished, obese - EENT Eyes: Present: PERRL, EOM intact (wearing corrective lenses) ENT: hearing intact, clear oral mucosa - Neck Neck: Present: supple, normal ROM - Respiratory Respiratory effort: normal Respiratory: bilateral: CTA - Cardiovascular Rhythm: regular Heart Sounds: Present: S1 & S2 - Extremities Extremities: no ischemia Results - Labs CBC & Chem 7: 01/13/22 05:55 01/13/22 05:55 Labs: Abnormal lab results 01/12/22 01/12/22 01/12/22 Range/Units 17:14 17:14 17:14 RBC 5.17 H (3.65-5.03) M/mm3 Hct 46.5 H (35.5-45.6) % MCHC (32-34) % Lymph % (Auto) 12.0 L (13.4-35.0) % Lymph # (Auto) 0.9 L (1.2-5.4) K/mm3 Seg Neutrophils % 82.5 H (40.0-70.0) % PT 12.0 L (12.2-14.9) Sec. INR 0.81 L (0.87-1.13) Carbon Dioxide 20 L (22-30) mmol/L Creatinine 1.4 H (0.8-1.3) mg/dL Glucose 104 H (75-100) mg/dL Total Creatine Kinase 181 H (55-170) units/L Total Protein 8.5 H (6.3-8.2) g/dL 01/13/22 01/13/22 Range/Units 05:55 05:55 RBC (3.65-5.03) M/mm3 Hct (35.5-45.6) % MCHC 35 H (32-34) % Lymph % (Auto) (13.4-35.0) % Lymph # (Auto) (1.2-5.4) K/mm3 Seg Neutrophils % 70.9 H (40.0-70.0) % PT (12.2-14.9) Sec. INR (0.87-1.13) Carbon Dioxide 21 L (22-30) mmol/L Creatinine (0.8-1.3) mg/dL Glucose 106 H (75-100) mg/dL Total Creatine Kinase (55-170) units/L Total Protein (6.3-8.2) g/dL - Imaging and Cardiology Chest x-ray: image reviewed CT Scan - head: report reviewed Assessment and Plan 36 y/o male with hypertensive urgency. 1. off cardene 2. Suggest starting at least HCTZ 25 3. DIet and exercise 4. Stable for transfer out of unit.
--- NOTE | 2022-01-13 12:33 | Electrocardiograph Report ---
[facility] Test Date: 2022-01-12 Test Time: 21:28:09 Pat Name: PASQUALE TOUSSAINT Department: Room: A257 1 Gender: M Security Manager: BRAD : 1985 Requested By: JONATHAN SWARTZ Order Number: [id number] Reading MD: Radha Mitchell Measurements Intervals [place] Rate: 100 P: 69 [place]: 178 QRS: -29 QRSD: 87 T: 79 QT: 352 QTc: 454 Interpretive Statements Sinus tachycardia No previous ECG available for comparison Electronically Signed On 01-13-2022 12:32:57 EST by Radha Mitchell
[2022-01-13] MEDS: NIFEdipine XL 90 MG TAB PO SCH (21:14)
[2022-01-14 05:06] LABS: Hematocrit 39.9 % (35.5-45.6); Hemoglobin 14.1 gm/dl (11.8-15.2); Mean Corpuscular HGB Conc 35 % (32-34); Mean Corpuscular Volume 88 fl (84-94); Platelet Count 189 K/mm3 (140-440); Red Blood Count 4.55 M/mm3 (3.65-5.03); Red Cell Distribution Width 13.4 % (13.2-15.2)
[2022-01-14 05:22] LABS: BUN/Creatinine Ratio 14; Blood Urea Nitrogen 17 mg/dL (9-20); Calcium 8.8 mg/dL (8.4-10.2); Hemolysis Index 8
--- NOTE | 2022-01-14 08:26 | Progress Note ---
Assessment and Plan Assessment and plan: This is a 36-year-old AA male with known past medical history of HTN who has been noncompliant with his antihypertensive meds for over 2 years, presented with hypertensive emergency and tingling sensation to the left side of the face and left upper extremity. Hospital Course to Date: 01/13: BP more control this am, off cardene gtt. Continue current antihypertensive regimen for now. Per patient the numbing and tingling sensation resolved just a slight headache this am, will proceed with MRI brain and Neuro consult pending. Thorough education provided on the importance to follow up with a PCP, medications compliance, and sedentary lifestyle changes at discharge. Patient verbalized understanding of the info provided and all questions and concerns were voiced at this time. Patient is stable for transfer to telemetry. Assessment and Plan #Hypertensive Encephalopathy - Presented with Left-sided facial numbness and left-sided upper extremity numbnes most likely related to High BP - BP more control this am, off cardene gtt - Numbing and tingling sensation resolved however still with LUCERO - CT head/brain is unremarkable - MRI brain and Neuro consult pending - PRN analgesia for pain management #Hypertensive Emergency - BP more control this am, off cardene gtt - Continue antihypertensives valsartan, Coreg and nifedipine - Continue blood pressure monitor per protocol - PRN Hydralazine for SBP greater than 160 - Education provided on compliance and F/u with a PCP at discharge - Patient is stable for transfer to Telemetry #Acute Kidney Injury(KALPESH) most likely Vasomotor Nephropathy - Renal function improved this am - Continue tight BP control - Strict intake and output - Avoid nephrotoxic medications; Renally dose medications - Trend BMP #Morbid obesity with BMI of 40.0-44.9, adult - Education provided on sedentary lifestyle changes - Patient to follow-up with bariatric surgery as outpatient #GI/DVT Prophylaxis - PPI- Pepcid - Continue AC-Hep SubQ - SCDs to bilateral lower extremities while in bed Hospitalist Physical - Constitutional Vitals: Temp Pulse Resp BP Pulse Ox 98.7 F 59 L 18 141/87 97 01/14/22 07:29 01/14/22 07:29 01/14/22 07:29 01/14/22 07:29 01/14/22 08:18 General appearance: Present: no acute distress, well-nourished, obese HEART Score - HEART Score Age: < 45 Risk factors: 1-2 risk factors Troponin: Troponin T < 0.010 ng/mL (0.00-0.029) 01/12/22 17:14 - Critical Actions Critical Actions: 0-3 pts:0.9-1.7%risk of adverse cardiac event.Candidate for discharge Results - Labs CBC & Chem 7: 01/14/22 04:47 01/14/22 04:47 Labs: Laboratory Last Values WBC 7.0 K/mm3 (4.5-11.0) 01/14/22 04:47 RBC 4.55 M/mm3 (3.65-5.03) 01/14/22 04:47 Hgb 14.1 gm/dl (11.8-15.2) 01/14/22 04:47 Hct 39.9 % (35.5-45.6) 01/14/22 04:47 MCV 88 fl (84-94) 01/14/22 04:47 MCH 31 pg (28-32) 01/14/22 04:47 MCHC 35 % (32-34) H 01/14/22 04:47 RDW 13.4 % (13.2-15.2) 01/14/22 04:47 Plt Count 189 K/mm3 (140-440) 01/14/22 04:47 Lymph % (Auto) 20.2 % (13.4-35.0) 01/13/22 05:55 [place]field % (Auto) 6.4 % (0.0-7.3) 01/13/22 05:55 Eos % (Auto) 1.6 % (0.0-4.3) 01/13/22 05:55 Baso % (Auto) 0.9 % (0.0-1.8) 01/13/22 05:55 Lymph # (Auto) 1.7 K/mm3 (1.2-5.4) 01/13/22 05:55 Whitfield # (Auto) 0.5 K/mm3 (0.0-0.8) 01/13/22 05:55 Eos # (Auto) 0.1 K/mm3 (0.0-0.4) 01/13/22 05:55 Baso # (Auto) 0.1 K/mm3 (0.0-0.1) 01/13/22 05:55 Seg Neutrophils % 70.9 % (40.0-70.0) H 01/13/22 05:55 Seg Neutrophils # 5.8 K/mm3 (1.8-7.7) 01/13/22 05:55 PT 12.0 Sec. (12.2-14.9) L 01/12/22 17:14 INR 0.81 (0.87-1.13) L 01/12/22 17:14 APTT 33.8 Sec. (24.2-36.6) 01/12/22 17:14 Thrombin Time 17.4 Sec. (15.1-19.6) 01/12/22 17:14 Sodium 135 mmol/L (137-145) L 01/14/22 04:47 Potassium 3.5 mmol/L (3.6-5.0) L 01/14/22 04:47 Chloride 100.8 mmol/L (98-107) 01/14/22 04:47 Carbon Dioxide 24 mmol/L (22-30) 01/14/22 04:47 Anion Gap 14 mmol/L 01/14/22 04:47 BUN 17 mg/dL (9-20) 01/14/22 04:47 Creatinine 1.2 mg/dL (0.8-1.3) 01/14/22 04:47 Estimated GFR > 60 ml/min 01/14/22 04:47 BUN/Creatinine Ratio 14 % 01/14/22 04:47 Glucose 98 mg/dL (75-100) 01/14/22 04:47 POC Glucose 105 mg/dL (70-105) 01/12/22 17:25 Calcium 8.8 mg/dL (8.4-10.2) 01/14/22 04:47 Total Bilirubin 0.40 mg/dL (0.1-1.2) 01/13/22 05:55 AST 15 units/L (5-40) 01/13/22 05:55 ALT 10 units/L (7-56) 01/13/22 05:55 Alkaline Phosphatase 92 units/L (35-129) 01/13/22 05:55 Total Creatine Kinase 181 units/L (55-170) H 01/12/22 17:14 CK-MB (CK-2) 1.5 ng/mL (0.0-4.0) 01/12/22 17:14 CK-MB (CK-2) Rel Index 0.8 (0-4) 01/12/22 17:14 Troponin T < 0.010 ng/mL (0.00-0.029) 01/12/22 17:14 Total Protein 7.3 g/dL (6.3-8.2) 01/13/22 05:55 Albumin 4.2 g/dL (3.9-5) 01/13/22 05:55 Albumin/Globulin Ratio 1.4 % 01/13/22 05:55 Urine Color Straw (Yellow) 01/12/22 18:35 Urine Turbidity Clear (Clear) 01/12/22 18:35 Urine pH 7.0 (5.0-7.0) 01/12/22 18:35 Ur Specific [place] 1.013 (1.003-1.030) 01/12/22 18:35 Urine Protein 30 mg/dl mg/dL (Negative) 01/12/22 18:35 Urine Glucose (UA) Neg mg/dL (Negative) 01/12/22 18:35 Urine Ketones Neg mg/dL (Negative) 01/12/22 18:35 Urine Blood Neg (Negative) 01/12/22 18:35 Urine Nitrite Neg (Negative) 01/12/22 18:35 Urine Bilirubin Neg (Negative) 01/12/22 18:35 Urine Urobilinogen < 2.0 mg/dL (<2.0) 01/12/22 18:35 Ur Leukocyte Esterase Neg (Negative) 01/12/22 18:35 Urine WBC (Auto) 1.0 /HPF (0.0-6.0) 01/12/22 18:35 Urine RBC (Auto) 2.0 /HPF (0.0-6.0) 01/12/22 18:35 U Epithel Cells (Auto) < 1.0 /HPF (0-13.0) 01/12/22 18:35 Urine Opiates Screen Presumptive negative 01/12/22 18:35 Urine Methadone Screen Presumptive negative 01/12/22 18:35 Ur Barbiturates Screen Presumptive negative 01/12/22 18:35 Ur Phencyclidine Scrn Presumptive negative 01/12/22 18:35 Ur Amphetamines Screen Presumptive negative 01/12/22 18:35 U Benzodiazepines Scrn Presumptive negative 01/12/22 18:35 Urine Cocaine Screen Presumptive negative 01/12/22 18:35 U Marijuana (THC) Screen Presumptive negative 01/12/22 18:35 Drugs of Abuse Note Disclamer 01/12/22 18:35 Perez/IV: Voiding Method Toilet Active Medications - Current Medications Current Medications: Generic Name Dose Route Start Last Admin Trade Name Freq PRN Reason Stop Dose Admin Acetaminophen 650 mg 01/12/22 19:48 Acetaminophen 325 Mg Tab PO Q4H PRN Pain MILD(1-3)/Fever >100.5/LUCERO Carvedilol 12.5 mg 01/12/22 22:00 01/13/22 21:14 Carvedilol 12.5 Mg Tab PO 12.5 mg BID ELMER Administration Famotidine 20 mg 01/13/22 10:00 01/13/22 09:34 Famotidine 20 Mg Tab PO 20 mg QDAY ELMER Administration Heparin Sodium (Porcine) 5,000 unit 01/12/22 22:00 01/13/22 21:14 Heparin 5,000 Unit/1 Ml Vial SUB-Q 5,000 unit Q12HR ELMER Administration Hydrochlorothiazide 25 mg 01/14/22 10:00 Hydrochlorothiazide 25 Mg Tab PO QDAY ELMER Nifedipine 90 mg 01/12/22 21:00 01/13/22 21:14 Nifedipine Xl 90 Mg Tab PO 90 mg Q24H ELMER Administration Ondansetron HCl 4 mg 01/12/22 19:48 Ondansetron 4 Mg/2 Ml Inj IV Q8H PRN Nausea And Vomiting Oxycodone/Acetaminophen 1 tab 01/12/22 19:48 Oxycodone /Acetaminophen 5-325mg Tab PO Q6H PRN Pain, Moderate (4-6) Sodium Chloride 10 ml 01/12/22 22:00 01/13/22 21:15 Sodium Chloride 0.9% 10 Ml Flush Syringe IV 10 ml BID ELMER Administration Sodium Chloride 10 ml 01/12/22 19:48 Sodium Chloride 0.9% 10 Ml Flush Syringe IV PRN PRN LINE FLUSH Valsartan 160 mg 01/12/22 20:20 01/13/22 21:14 Valsartan 160mg Tab PO 160 mg Q12H ELMER Administration
[2022-01-14] MEDS: VALSARTAN 160MG TAB PO SCH (08:28)
[2022-01-14] MEDS: carvediloL 12.5 MG TAB PO SCH (09:44)
[2022-01-14] MEDS: HEPARIN 5,000 UNIT/1 ML VIAL SUB-Q SCH (09:44)
[2022-01-14] MEDS: FAMOTIDINE 20 MG TAB PO SCH (09:44)
[2022-01-14] MEDS ORDERED: hydroCHLOROthiazide 25 MG TAB PO SCH (10:00)
--- NOTE | 2022-01-14 10:15 | Progress Note ---
Assessment and Plan 36 y/o male with hypertensive urgency. 01/14/22: stable pulm status. No further need for critical care. Will sign off. 1. off cardene 2. Suggest starting at least HCTZ 25 3. DIet and exercise 4. Stable for transfer out of unit. Subjective Date of service: 01/14/22 Interval history: Successful transfer out of ICU. STable pulm status. BP better but currently on 4 drugs. Objective - Constitutional Vitals: Vital Signs - 12hr 01/13/22 01/14/22 01/14/22 23:32 03:55 07:29 Temperature 97.9 F 97.8 F 98.7 F Pulse Rate 65 65 59 L Respiratory 16 18 18 Rate Blood Pressure 182/87 150/84 141/87 O2 Sat by Pulse 99 100 98 Oximetry 01/14/22 01/14/22 01/14/22 08:18 08:28 09:44 Temperature Pulse Rate 70 70 Respiratory Rate Blood Pressure 138/77 O2 Sat by Pulse 97 Oximetry - Labs CBC & Chem 7: 01/14/22 04:47 01/14/22 04:47 Labs: Abnormal lab results 01/14/22 01/14/22 Range/Units 04:47 04:47 MCHC 35 H (32-34) % Sodium 135 L (137-145) mmol/L Potassium 3.5 L (3.6-5.0) mmol/L Medications & Allergies - Medications Allergies/Adverse Reactions: Allergies No Known Allergies Allergy (Verified 01/12/22 18:38) Home Medications: Home Medications Medication Instructions Recorded Confirmed Last Taken Type No Known Home Medications [No 01/12/22 01/12/22 Unknown History Reported Home Medications] Active Medications: Generic Name Dose Route Start Last Admin Trade Name Freq PRN Reason Stop Dose Admin Acetaminophen 650 mg 01/12/22 19:48 Acetaminophen 325 Mg Tab PO Q4H PRN Pain MILD(1-3)/Fever >100.5/LUCERO Carvedilol 12.5 mg 01/12/22 22:00 01/14/22 09:44 Carvedilol 12.5 Mg Tab PO 12.5 mg BID ELMER Administration Famotidine 20 mg 01/13/22 10:00 01/14/22 09:44 Famotidine 20 Mg Tab PO 20 mg QDAY ELMER Administration Heparin Sodium (Porcine) 5,000 unit 01/12/22 22:00 01/14/22 09:44 Heparin 5,000 Unit/1 Ml Vial SUB-Q 5,000 unit Q12HR ELMER Administration Hydrochlorothiazide 25 mg 01/14/22 10:00 01/14/22 09:44 Hydrochlorothiazide 25 Mg Tab PO 25 mg QDAY ELMER Administration Nifedipine 90 mg 01/12/22 21:00 01/13/22 21:14 Nifedipine Xl 90 Mg Tab PO 90 mg Q24H ELMER Administration Ondansetron HCl 4 mg 01/12/22 19:48 Ondansetron 4 Mg/2 Ml Inj IV Q8H PRN Nausea And Vomiting Oxycodone/Acetaminophen 1 tab 01/12/22 19:48 Oxycodone /Acetaminophen 5-325mg Tab PO Q6H PRN Pain, Moderate (4-6) Sodium Chloride 10 ml 01/12/22 22:00 01/14/22 09:45 Sodium Chloride 0.9% 10 Ml Flush Syringe IV 10 ml BID ELMER Administration Sodium Chloride 10 ml 01/12/22 19:48 Sodium Chloride 0.9% 10 Ml Flush Syringe IV PRN PRN LINE FLUSH Valsartan 160 mg 01/12/22 20:20 01/14/22 08:28 Valsartan 160mg Tab PO 160 mg Q12H ELMER Administration HEART Score - HEART Score Age: < 45 Risk factors: 1-2 risk factors Troponin: Troponin T < 0.010 ng/mL (0.00-0.029) 01/12/22 17:14 - Critical Actions Critical Actions: 0-3 pts:0.9-1.7%risk of adverse cardiac event.Candidate for discharge
[2022-01-14 11:15] VITALS: BP 128/56
--- NOTE | 2022-01-14 14:01 | Discharge Summary ---
Providers - Providers Date of Admission: 01/12/22 19:48 Date of discharge: 01/14/22 Attending physician: NESHA TORRES 01/12/22 20:24 Consult to Physician [CONS] Routine Comment: Consulting Provider: GILBERT GARCIA Physician Instructions: Reason For Exam: Facial numbness left side Consult to Physician [CONS] Routine Comment: Consulting Provider: LASHAY GRIER Physician Instructions: Reason For Exam: Hypertensive emergency Primary care physician: RENAE MALCOLM Hospitalization Reason for admission: Tingling and numbness /hypertensive emergency/uncontrolled blood pressures Condition: Stable Pertinent studies: Chest x-ray CT head without contrast; no intracranial hemorrhage or stroke, no acute focal parenchymal lesion Hospital course: This is a 36-year-old AA male with known past medical history of HTN who has been noncompliant with his antihypertensive meds for over 2 years, presented with hypertensive emergency and tingling sensation to the left side of the face and left upper extremity. Patient was noted to have hypertensive emergency with the Peak blood pressure 234 /140 upon admission, patient was started on Cardene drip, admitted to ICU , patient also has tingling and numbness in hypertensive encephalopathy, CT head negative for acute abnormality As the blood pressures improved neuro symptoms significantly improved Patient's blood pressures were stabilized on oral antihypertensives, Cardene drip discontinued Transfer the patient to medical floor today patient is comfortable no new complaints denies any headache or dizziness Blood pressures are well controlled On multiple antihypertensives Valsartan nifedipine hydrochlorothiazide Coreg Patient's blood pressures well controlled this morning 138/77 most recent one 128/ 56 patient is ambulatory and tolerating oral nutrition Vital signs stable Patient is stable at discharge Discharge diagnosis; #Hypertensive Encephalopathy - Presented with Left-sided facial numbness and left-sided upper extremity numbnes most likely related to High BP - BP more control this am, off cardene gtt - Numbing and tingling sensation resolved however still with LUCERO - CT head/brain is unremarkable - MRI brain and Neuro consult pending - PRN analgesia for pain management #Hypertensive Emergency - BP more control this am, off cardene gtt - Continue antihypertensives valsartan, Coreg and nifedipine - Continue blood pressure monitor per protocol - PRN Hydralazine for SBP greater than 160 - Education provided on compliance and F/u with a PCP at discharge - Patient is stable for transfer to Telemetry #Acute Kidney Injury(KALPESH) most likely Vasomotor Nephropathy - Renal function improved this am - Continue tight BP control - Strict intake and output - Avoid nephrotoxic medications; Renally dose medications - Trend BMP #Morbid obesity with BMI of 40.0-44.9, adult - Education provided on sedentary lifestyle changes - Patient to follow-up with bariatric surgery as outpatient #Mild hypokalemia #Mild hyponatremia #GI/DVT Prophylaxis - PPI- Pepcid - Continue AC-Hep SubQ - SCDs to bilateral lower extremities while in bed Stable at discharge Disposition: 01 HOME / SELF CARE / HOMELESS Final Discharge Diagnosis (Prints w/discharge instructions): Hypertensive encephalopathy/resolved. Hypertensive emergency/BP well controlled. Acute kidney injury/vasomotor nephropathy/resolved. Morbid obesity; BMI 41.0. Medical noncompliance/counseling done. Hypokalemia. Mild hyponatremia Time spent for discharge: 40 min Core Measure Documentation - Palliative Care Palliative Care/ Comfort Measures: Not Applicable - Core Measures Any of the following diagnoses?: none Exam - Constitutional Vitals: Temp Pulse Resp BP Pulse Ox 98.6 F 88 18 128/56 96 01/14/22 10:47 01/14/22 10:47 01/14/22 10:47 01/14/22 10:47 01/14/22 10:47 Plan Activity: advance as tolerated Diet: low salt Special Instructions: smoking cessation, other (Advised to quit alcohol intake) Additional Instructions: Advised smoking cessation, nicotine patch as needed. Strongly advised to quit alcohol intake. Patient strongly advised to comply with medications, diet, exercise, and follow-up visits. Advised diet modification exercise as tolerated weight reduction with stable. Follow with primary care physician within 1 week. If you have worsening symptoms contact MD or go to the nearest emergency room as needed Follow up with: RENAE MALCOLM MD [Primary Care Provider] - 7 Days Prescriptions: carvediloL [Coreg] 12.5 mg PO BID #60 tablet Valsartan [Diovan] 160 mg PO Q12H #30 tablet hydroCHLOROthiazide [HCTZ] 25 mg PO QDAY #30 tablet Famotidine [Pepcid] 20 mg PO QDAY #14 tablet NIFEdipine XL [Procardia Xl] 90 mg PO Q24H #30 tablet
== END 2022-01-14 16:00 | disposition home or self-care (01) ==
LOC: ED 16:45 → CC1 19:48 → INTOOBSV 19:48 → 4A 01-13 17:27
PROVIDERS: ADMIT Internal Medicine; ATTEND Internal Medicine
DX: I67.4 Hypertensive encephalopathy (principal); I16.1 Hypertensive emergency; N17.9 Acute kidney failure, unspecified; E66.01 Morbid (severe) obesity due to excess calories; J45.909 Unspecified asthma, uncomplicated; E87.6 Hypokalemia; E87.1 Hypo-osmolality and hyponatremia; R20.0 Anesthesia of skin; Z87.891 Personal history of nicotine dependence; Z86.73 Personal history of transient ischemic attack (TIA), and cerebral infarction without residual deficits; Z79.899 Other long term (current) drug therapy; Z98.890 Other specified postprocedural states; Z68.41 Body mass index [BMI] 40.0-44.9, adult
CPT/HCPCS: 36415; 70450; 71045; 80048; 80053; 80307; 81001; 82550; 82553; 82962; 84484; 85025; 85027; 85610; 85670; 85730; 93005; 93010; 96361; 96365; 96366; 96372; 96375; 99285; 99406; G0378; J1644; J3490; J7030; J7050; J9280; Q0162